=== PATIENT | female | born 1985 | race Two or more races ===

== ENCOUNTER 2017-05-05 08:26 | Emergency (ER) | payer BC, OTHER ==
[2017-05-05 08:34] VITALS: BMI 19.0
[2017-05-05] MEDS ORDERED: ACETAMINOPHEN 1000 MG/100 ML VIAL (NON FORMULARY) IVPB ONE (09:29)
[2017-05-05] MEDS ORDERED: SODIUM CHLORIDE 1,000 ML IV STA (09:29)
[2017-05-05] MEDS ORDERED: ACETAMINOPHEN INJECTION 100 ML IVPB ONE (09:33)
[2017-05-05] MEDS ORDERED: ONDANSETRON 4 MG/2 ML VIAL ONE (09:36)
[2017-05-05] MEDS ORDERED: ONDANSETRON 4 MG/2 ML VIAL IVPUSH ONE (09:39)
--- NOTE | 2017-05-05 10:11 | PDOC ---
History of Present Illness - General Chief Complaint: Pain, Acute Stated Complaint: RT FLANK/ ABD PAIN Time Seen by Provider: 05/05/17 08:54 History Source: Patient Exam Limitations: No Limitations - History of Present Illness Travel History: No Initial Comments: 05/05/17 10:07 31-year-old female presents to the emergency room with complaints of right suprapubic cramping associated with hematuria and/or vaginal bleeding since this morning. Patient states LMP was 03/13/2017 and did a home this morning which showed positive for . Patient states has been on oral contraceptives with no interruption for the past 4 years. Patient denies fever, chills, dysuria, recent injury, recent illness. Patient does complain of mild nausea with pain radiating to her suprapubic region. Timing/Duration: reports: constant Quality: reports: moderate, cramping Abdominal Pain Onset Location: reports: suprapubic Pain Radiation: reports: RLQ Activities at Onset: reports: none Aggravating Factors: improves with: Movement Alleviating Factors: improves with: None Past History - Travel Traveled outside of the country in the last 30 days: No Close contact w/someone who was outside of country & ill: No - Past Medical History Allergies/Adverse Reactions: Allergies Allergy/AdvReac Type Severity Reaction Status Date / Time No Known Drug Allergies Allergy Verified 05/05/17 08:29 anesethia Allergy Uncoded 05/05/17 08:29 Home Medications: Ambulatory Orders Budesonide/Formeterol Fumarate [SYMBICORT 160/4.5mcg -] 1 inh PO BID 04/17/16 Levonorgestrel-Ethin Estradiol [Aubra] 1 each PO DAILY 04/17/16 Nitrofurantoin Monohyd/M-Cryst [Macrobid -] 100 mg PO BID #14 capsule 04/18/16 Anemia: Yes Asthma: Yes Other medical history: Loly 3 (OB) - Reproductive History LMP Normal: No Is Patient Now?: Yes (#): 1 Para: 0 - Immunization History Immunization Up to Date: Yes - Suicide/Smoking/Psychosocial Hx Smoking History: Never smoked Have you smoked in the past 12 months: No Number of Cigarettes Smoked Daily: 0 If you are a former smoker, when did you quit?: 3months Cigars Per Day: 0 Information on smoking cessation initiated: No Hx Alcohol Use: No Drug/Substance Use Hx: No Substance Use Type: None Patient Lives Alone: No Lives with/in: parents Review of Systems - Review of Systems Able to Perform ROS?: Yes Constitutional: No: Symptoms Reported HEENTM: No: Symptoms Reported Respiratory: No: Symptoms reported ABD/GI: Yes: Nausea, Abdominal cramping : No: Symptoms Reported Musculoskeletal: No: Symptoms Reported Integumentary: No: Symptoms Reported Neurological: No: Pre-Existing Deficit Hematologic/Lymphatic: No: Symptoms Reported *Physical Exam - Vital Signs Last Vital Signs Temp Pulse Resp BP Pulse Ox 98.4 F 88 14 124/78 100 05/05/17 08:30 05/05/17 08:30 05/05/17 08:30 05/05/17 08:30 05/05/17 08:30 - Physical Exam General Appearance: Yes: Nourished, Appropriately Dressed. No: Apparent Distress HEENT: negative: Pale Conjunctivae Respiratory/Chest: positive: Lungs Clear, Normal Breath Sounds. negative: Respiratory Distress, Accessory Muscle Use Cardiovascular: positive: Regular Rhythm, Regular Rate. negative: Murmur Female Pelvic Exam: positive: normal external exam, cervical os closed, vaginal bleeding (tannish brown scant). negative: CMT, adnexal tenderness Gastrointestinal/Abdominal: positive: Normal Bowel Sounds, Soft, Guarding ( right suprapubic), Tenderness (right suprapubic right lower quadrant). negative : Distended, Rebound Extremity: positive: Normal Capillary Refill Integumentary: positive: Normal Color, Warm, Moist Neurologic: positive: Motor Strength 5/5 (ambulatory) ED Treatment Course - LABORATORY CBC & Chemistry Diagram: 05/05/17 09:45 05/05/17 09:45 - Medications Given in the ED: ED Medications Discontinued Medications Generic Name Dose Route Start Last Admin Trade Name Mindy PRN Reason Stop Dose Admin Acetaminophen 1,000 mg 05/05/17 09:29 05/05/17 09:51 Ofirmev Injection - IVPB 05/05/17 09:30 1,000 mg ONCE ONE Administration Ondansetron HCl 4 mg 05/05/17 09:39 05/05/17 09:51 Zofran Injection IVPUSH 05/05/17 09:40 4 mg ONCE ONE Administration Medical Decision Making - Medical Decision Making 10/12/17 10:27 Patient here with complaints of spotting since morning associated with cramping to the right lower quadrant. Patient had reproducible right suprapubic pain concerning for renal colic, ovarian cyst, ectopic , and appendicitis. Patient is approximately 6-7 weeks based on LMP labs including beta hCG , urine type and screen lipase and ultrasound will be ordered. 05/05/17 10:28 Laboratory Tests 05/05/17 05/05/17 09:45 09:45 WBC 8.3 Hgb 13.5 D Hct 41.6 Plt Count 230 Neutrophils % 55.7 Urine HCG, Qual Positive 05/05/17 11:33 Laboratory Tests 05/05/17 05/05/17 09:45 09:45 Beta HCG, Quant 22972.1 Blood Type O POSITIVE 05/05/17 13:34 Ultrasound shows a fluid collection consistent with a gestational sac corresponding with a gestational age of 5 weeks. The yolk sac is present however no pole was identified. Therefore the uncertainty of viability is present. The ovaries are normal in size and texture with arterial flow is documented to both ovaries. There is no evidence of adnexal masses or free fluid collections. Patient needs to follow-up with her PCP and will be discharged home with recommendations to take Tylenol for discomfort. *DC/Admit/Observation/Transfer Diagnosis at time of Disposition: Vaginal bleeding in - Discharge Dispostion Disposition: HOME Condition at time of disposition: Fair - Referrals Referrals: Odessa Cannon MD [Primary Care Provider] - - Patient Instructions Printed Discharge Instructions: DI for Vaginal Bleeding During Additional Instructions: At this time the ultrasound shows that you are approximately 5 weeks but is recommending repeat blood work to assess for progression of and possibly an ultrasound. May take Tylenol for discomfort. 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
[2017-05-05 10:19] LABS: URINE APPEARANCE CLEAR; URINE BILIRUBIN NEGATIVE (NEGATIVE); URINE BLOOD NEGATIVE (NEGATIVE); URINE COLOR YELLOW; URINE GLUCOSE (UA) NEGATIVE (NEGATIVE); URINE KETONE NEGATIVE (NEGATIVE); URINE NITRITE NEGATIVE (NEGATIVE); URINE PROTEIN NEGATIVE (NEGATIVE); URINE UROBILINOGEN NEGATIVE mg/dL (0.2-1.0)
[2017-05-05 10:20] LABS: BASOPHIL 0.6 % (0-2.0); MCH 23.8 pg (25.7-33.7); MCHC 32.5 g/dl (32.0-36.0); MEAN CELL VOLUME 73.4 fl (80-96); MEAN PLT VOLUME 9.2 fl (7.5-11.1); NEUTROPHILS 55.7 % (42.8-82.8); PLATELET COUNT 230 K/MM3 (134-434); RDW 17.3 % (11.6-15.6); WHITE BLOOD COUNT 8.3 K/mm3 (4.0-10.0)
[2017-05-05 10:46] LABS: ANION GAP 7 (8-16); BILIRUBIN,TOTAL 0.8 mg/dL (0.2-1.0); CALCIUM 9.2 mg/dL (8.5-10.1); CO2 26 mmol/L (21-32); CREATININE 0.8 mg/dL (0.55-1.02); GLUCOSE,RANDOM 87 mg/dL (74-106); SGOT/AST 19 U/L (15-37); SGPT/ALT 22 U/L (12-78); TOT PROT 7.9 g/dl (6.4-8.2)
[2017-05-05 10:47] LABS: ALK PHOS 65 U/L (45-117)
[2017-05-05] MEDS ORDERED: morphine CARPU-JECT 2 MG/1 ML DISP.SYRIN IVPUSH ONE (12:46)
[2017-05-05] MEDS ORDERED: morphine CARPU-JECT 10 MG/1 ML DISP.SYRIN ONE (12:50)
[2017-05-05 13:43] VITALS: BP 130/71; PULSE 75; TEMP 98.3
[2017-05-05 13:50] LABS: URINE LEUK ESTERASE Negative (NEGATIVE)
--- NOTE | 2017-05-05 14:26 | PDOC ---
*Physical Exam - Vital Signs Last Vital Signs Temp Pulse Resp BP Pulse Ox 98.3 F 75 16 130/71 96 05/05/17 13:38 05/05/17 13:38 05/05/17 13:38 05/05/17 13:38 05/05/17 13:38 - Physical Exam General Appearance: Yes: Nourished Respiratory/Chest: positive: Lungs Clear, Normal Breath Sounds, Respiratory Distress Cardiovascular: positive: Regular Rhythm, Regular Rate, S1, S2 Gastrointestinal/Abdominal: positive: Tender (suprapubic ttp. no rebound no guarding. ) Neurologic: positive: Alert, Normal Mood/Affect ED Treatment Course - LABORATORY CBC & Chemistry Diagram: 05/05/17 09:45 05/05/17 09:45 - ADDITIONAL ORDERS Additional order review: Laboratory Results 05/05/17 05/05/17 05/05/17 09:45 09:45 09:45 Sodium 136 Potassium 4.1 D Chloride 103 Carbon Dioxide 26 Anion Gap 7 L BUN 11 Creatinine 0.8 D Creat Clearance w eGFR > 60 Random Glucose 87 D Calcium 9.2 Total Bilirubin 0.8 D AST 19 D ALT 22 D Alkaline Phosphatase 65 D Total Protein 7.9 Albumin 4.0 Lipase 108 Beta HCG, Quant 13018.1 Urine Color Yellow Urine Appearance Clear Urine pH 5.0 D Ur Specific [place] 1.015 Urine Protein Negative Urine Glucose (UA) Negative Urine Ketones Negative Urine Blood Negative Urine Nitrite Negative Urine Bilirubin Negative Urine Urobilinogen Negative Ur Leukocyte Esterase Negative Urine HCG, Qual Positive Blood Type O POSITIVE Antibody Screen Negative 05/05/17 09:45 RBC 5.67 H MCV 73.4 L MCHC 32.5 RDW 17.3 H D MPV 9.2 Neutrophils % 55.7 Lymphocytes % 34.6 D Monocytes % 5.1 Eosinophils % 4.0 Basophils % 0.6 - RADIOLOGY Radiology Studies Ordered: Category Date Time Status PELVIC / BLADDER US [US] Routine Ultrasound 05/05/17 Completed - Medications Given in the ED: ED Medications Discontinued Medications Generic Name Dose Route Start Last Admin Trade Name Freq PRN Reason Stop Dose Admin Acetaminophen 1,000 mg 05/05/17 09:29 05/05/17 09:51 Ofirmev Injection - IVPB 05/05/17 09:30 1,000 mg ONCE ONE Administration Sodium Chloride 1,000 mls @ 1,000 mls/hr 05/05/17 09:29 05/05/17 09:32 Normal Saline - IV 05/05/17 10:28 1,000 mls/hr ASDIR STA Administration Morphine Sulfate 2 mg 05/05/17 12:46 05/05/17 12:55 Morphine Injection - IVPUSH 05/05/17 12:47 2 mg ONCE ONE Administration Ondansetron HCl 4 mg 05/05/17 09:39 05/05/17 09:51 Zofran Injection IVPUSH 05/05/17 09:40 4 mg ONCE ONE Administration Medical Decision Making - Medical Decision Making 05/05/17 14:24 31 yo F here with irregular period, last normal period 02/07 then spotting in and 04/10, had positive test. no urinary complaints. suprpapubic crampy abd pain. on exam awake alert lungs clear heart regular. abd mild suprapubic ttp. differential ectopic, vs iup, vs infeciton. plan tvus. labs pt seen and examined with MEL Whitaker., agree with plan us with gestational sac, and yolk sac, IUP. dc home with ob followup. *DC/Admit/Observation/Transfer Diagnosis at time of Disposition: Vaginal bleeding in - Discharge Dispostion Disposition: HOME Condition at time of disposition: Fair - Referrals Referrals: Odessa Cannon MD [Primary Care Provider] - - Patient Instructions Printed Discharge Instructions: DI for Vaginal Bleeding During Additional Instructions: At this time the ultrasound shows that you are approximately 5 weeks but is recommending repeat blood work to assess for progression of and possibly an ultrasound. May take Tylenol for discomfort. 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 - Post Discharge Activity Forms/Work/School Notes: Back to Work
== END 2017-05-05 13:58 | disposition home or self-care (01) ==
LOC: JER 08:26
PROC: 3E033NZ Introduction of Analgesics, Hypnotics, Sedatives into Peripheral Vein, Percutaneous Approach (ICD-10-PCS; principal; 2017-05-05)
PROC: 3E033GC Introduction of Other Therapeutic Substance into Peripheral Vein, Percutaneous Approach (ICD-10-PCS; 2017-05-05)
PROC: 3E0337Z Introduction of Electrolytic and Water Balance Substance into Peripheral Vein, Percutaneous Approach (ICD-10-PCS; 2017-05-05)
DX: O46.91 Antepartum hemorrhage, unspecified, first trimester (principal); Z3A.01 Less than 8 weeks gestation of pregnancy; J45.909 Unspecified asthma, uncomplicated; D64.9 Anemia, unspecified; Z88.4 Allergy status to anesthetic agent
CPT/HCPCS: 36415; 76817-TC; 76856-TC; 80053; 81003; 83690; 84702; 84703; 85025; 86850; 86900; 86901; 87086; 99282-25